=== PATIENT | male | born 1950 | race Caucasian/White ===

== ENCOUNTER → 2023-04-07 10:16 | Outpatient (REF) | payer OTHER, SELFPAY | LOC: HWRAD 10:16 | PROVIDERS: ATTENDING PHYSICIAN Internal Medicine Hematology & Oncology; FAMILY PHYSICIAN Family Medicine | DX: D75.1 Secondary polycythemia (principal); D72.828 Other elevated white blood cell count | CPT/HCPCS: 76705 ==

== ENCOUNTER 2023-04-13 06:25 | Day surgery (SDC) | payer OTHER, SELFPAY ==
[2023-04-13 08:11] VITALS: BP 143/91
[2023-04-13 08:20] VITALS: BMI 30.5
[2023-04-13 08:29] LABS: Glucose - Point of Care 132 mg/dl (70-99)
[2023-04-13 10:49] LABS: Glucose - Point of Care 101 mg/dl (70-99)
[2023-04-13 10:52] VITALS: BP 106/77
[2023-04-13 11:00] VITALS: BP 127/85
== END 2023-04-13 11:43 | disposition home or self-care (01) ==
LOC: SDS 06:25
PROVIDERS: ATTENDING PHYSICIAN Internal Medicine Gastroenterology
DX: D12.2 Benign neoplasm of ascending colon (principal); D12.5 Benign neoplasm of sigmoid colon; K57.30 Diverticulosis of large intestine without perforation or abscess without bleeding; K64.8 Other hemorrhoids; R19.5 Other fecal abnormalities; K29.70 Gastritis, unspecified, without bleeding; D13.2 Benign neoplasm of duodenum; K31.7 Polyp of stomach and duodenum; K31.A0 Gastric intestinal metaplasia, unspecified; K31.89 Other diseases of stomach and duodenum; Z79.01 Long term (current) use of anticoagulants
CPT/HCPCS: 45385; 45381; 43239; 88305; 82962; 88342

== ENCOUNTER 2023-05-28 08:44 | Emergency (ER) | payer OTHER, SELFPAY ==
[2023-05-28 08:48] VITALS: BP 157/79
--- NOTE | 2023-05-28 08:57 | EDRN ---
Dr. Llanes in room w/ pt at this time.
--- NOTE | 2023-05-28 09:11 | ED.GENMED ---
History of Present Illness
General
Chief Complaint: Back Pain
Source: patient
Exam Limitations: none
Time Seen by Provider: 05/28/23 08:51
Nursing documentation reviewed up to this point in time: agreed with
Travel History
Have you had any contact with someone who has COVID-19?: No
Do you have any symptoms of coronavirus? Fever > 100 degrees, chills, cough, shortness of breath, sore throat, loss of taste or smell, muscle aches, or headache?: No
History of Present Illness
History of Present Illness:
72-year-old male presents emergency department complaint of low back pain that began last night at 8 PM when he got out of a car. The pain radiates down his right leg. He denies any loss of bowel or bladder function. He denies any numbness.
Past History
Past History
ED Past Medical History: HTN, Hypercholesterolemia and IDDM
ED Past Surgical History: Orthopedic
Social History
Tobacco: Non-smoker
Living: with family
Review of Systems
Review of Systems
Allergies reviewed?: Yes
All Other Systems: Not applicable
Constitutional: Reports no symptoms
EENT: Reports no symptoms
Respiratory: Reports no symptoms
Cardiac: Reports no symptoms
ABD/GI: Reports no symptoms
: Reports no symptoms
Musculoskeletal: Reports back pain
Skin: Reports no symptoms
Neurological: Reports no symptoms
Endocrine: Reports no symptoms
Hematologic/Lymphatic: Reports no symptoms
Psychiatric: Reports no symptoms
Phy Exam
Physical Exam
Physical Exam:
Physical Exam
General: Appears uncomfortable, afebrile
Neck: supple. no meningeal signs. normal posterior pharynx
Heart: s1/s2 regular rate and rhythm, no murmur. equal radial
pulses.
HEENT: Pupils equal round reactive to light, EOMI
Lungs: no acute respiratory distress. clear bilaterally
Abdomen: normal bowel sounds. not tender. no CVAT
back: mild ttp at right SI joint, no stepoff
Neuro: alert and oriented. no focal neurological deficits cranial nerves II through XII intact
Skin: no rash
Psychiatric: well kept. interactive and cooperative
Extremities: no edema. no calf tenderness. negative homans. good distal pulses
Course
Orders/Labs/Results
Orders:
Orders
05/28/23 09:05
IV Insert/Care/Rem.- Treatment PRN
HYDROmorphone [Dilaudid] 0.5 mg IV NOW STA
Ondansetron Injectable [Zofran] 4 mg IV NOW STA
Lumbar Spine Complete, 4 View [CR Lumbar Spine Comp Min 4 Vw*] Urgent
Comment:
Reason For Exam: low back pain since last night, rad down left leg
05/28/23 13:22
HYDROmorphone [Dilaudid] 0.5 mg IV NOW STA
05/28/23 13:23
Dexamethasone Sod Phosphate [Decadron] 10 mg IV NOW STA
Vital Signs
Initial and Last Documented VS:
Initial Vital Signs
Temp Pulse Resp BP Pulse Ox
97.6 F 80 16 157/79 94
05/28/23 08:48 05/28/23 08:48 05/28/23 08:48 05/28/23 08:48 05/28/23 08:48
Last Documented Vital Signs
Temp Pulse Resp BP Pulse Ox
97.6 F 72 16 114/62 94
05/28/23 08:48 05/28/23 14:00 05/28/23 14:00 05/28/23 13:00 05/28/23 14:00
MDM/Problems Addressed
Differential Diagnosis Includes:
Cauda equina, sciatica
MDM/Problems Addressed:
72-year-old male with low back pain, no signs of cauda equina. Ambulates with some pain. Patient will follow-up with pain management.
Chronic conditions affecting care: HTN
Acute Exacerbation and/or Progression of Chronic Illness: HTN
*Radiology
Radiology exam reviewed: radiology read reviewed (Lumbar spine x-ray shows hypertrophic degenerative changes of lumbar spine)
*Pulse Oximetry
Patient hypoxic: no
*EKG
Interpreted by ED Provider?: NA
*Mangle Catcher Interpretation
Rate: Mangle Catcher- N/A
*Critical Care Note
Total Time (30-74mins, 75-104mins- exclusive of procedures): Not Applicable
Patient Management
Social determinants of health affecting care: Living situation
Escalation/DeEscalation of care consider admission/obs:
Admit not indicated
ED Attending Note
-
Portions of this chart may have been created with voice recognition software.� Occasional wrong word or��sound alike� substitutions may have occurred due to the inherent limitations of voice recognition software.
Discharge Plan
Departure
Patient Disposition: Home (Routine Discharge)
Date of Disposition: 05/28/23
Time of Disposition: 14:49
Patient with high blood pressure during this ER visit?: Yes
Condition: Good
Discharge Problem:
Low back pain
Instructions: Low Back Pain (DC), BLOOD PRESSURE
Prescriptions:
New
hydrocodone-acetaminophen 5-300 mg tablet
1 tab PO Q4H PRN (Reason: Pain) Qty: 14 0RF
prednisone 50 mg tablet
50 mg PO DAILY Qty: 4 0RF
No Action
atorvastatin 40 MG tablet
40 mg PO QPM
loperamide 2 MG capsule
2 mg PO PRN PRN (Reason: loose stools)
tamsulosin [Flomax] 0.4 MG capsule
0.4 mg PO HS
lisinopril 10 MG tablet
5 mg PO QPM
Novolin R Regular U100 Insulin 100 UNITS/ML solution
20 units SC AC
naproxen 500 MG tablet
1 - 2 tab PO PRN PRN (Reason: pain)
Levemir FlexTouch U100 Insulin 300 UNIT/3 ML insulin pen
80 units SC HS
Xarelto 20 mg Tablet
20 mg PO DAILY
atorvastatin 40 mg Tablet
40 mg PO DAILY
miconazole nitrate 2 % Cream
1 applic TOPICAL DAILY
tramadol 50 mg Tablet
50 mg PO DAILY
pantoprazole 40 mg Tablet,Delayed Release (Dr/Ec)
40 mg PO DAILY
cholecalciferol (vitamin D3) 10 mcg (400 unit) Tablet
10 mcg PO DAILY
Jardiance 25 mg Tablet
25 mg PO DAILY
Ozempic 2 mg/dose (8 mg/3 mL) Pen Injector
2 mg SC QWEEK
carboxymethylcellulose drops
1 BOTH EYES DAILY
Referrals:
Rory Wadsworth MD [Family Provider] - Call in 1-3 days for appt
Interventions
Interventions:
*Risk Screen - Suicide Last Done: 05/28/23 08:46
*General Assessment Last Done: 05/28/23 08:46
*Neglect/Abuse Screening Last Done: 05/28/23 08:46
ED- Fall Risk Assessment Last Done: 05/28/23 09:15
*ED COVID-19 Vaccine History Last Done: 05/28/23 09:15
ED-Musculoskeletal Assessment Last Done: 05/28/23 09:20
Discharge Date and Time
Print Language: SUDANESE
[2023-05-28 09:14] VITALS: BMI 31.5
[2023-05-28] MEDS: DILAUDID 0.5 MG IV ×2 (09:20→13:37)
[2023-05-28] MEDS: ZOFRAN 4 MG IV (09:22)
[2023-05-28 10:16] VITALS: BP 119/62
[2023-05-28 12:30] VITALS: BP 131/63
[2023-05-28 13:00] VITALS: BP 114/62
--- NOTE | 2023-05-28 13:17 | EDRN ---
Dr. Llanes in room w/ pt at this time.
[2023-05-28] MEDS: DECADRON 10 MG IV (13:38)
[2023-05-28 15:16] VITALS: BP 145/94
== END 2023-05-28 15:16 | disposition home or self-care (01) ==
LOC: EMR 08:44
PROVIDERS: EMERGENCY PHYSICIAN Emergency Medicine; FAMILY PHYSICIAN Pain Medicine Interventional Pain Medicine
DX: M54.50 Low back pain, unspecified (principal); I10 Essential (primary) hypertension
CPT/HCPCS: 99284; 96374; 96375 ×2; 96376; 72110

== ENCOUNTER → 2023-06-30 06:54 | Outpatient (REF) | payer OTHER, SELFPAY | LOC: PAVMRI 06:54 | PROVIDERS: ATTENDING PHYSICIAN Orthopaedic Surgery; FAMILY PHYSICIAN Family Medicine | DX: M54.50 Low back pain, unspecified (principal) | CPT/HCPCS: 72148 ==

== ENCOUNTER → 2023-07-24 14:32 | Outpatient (REF) | payer OTHER, SELFPAY | LOC: RCS 14:32 | PROVIDERS: ATTENDING PHYSICIAN Internal Medicine Cardiovascular Disease; FAMILY PHYSICIAN Family Medicine | DX: I35.0 Nonrheumatic aortic (valve) stenosis (principal) | CPT/HCPCS: 93306 ==

== ENCOUNTER 2023-08-12 06:11 | Day surgery (SDC) | payer OTHER, SELFPAY ==
[2023-08-12 07:09] LABS: Glucose - Point of Care 113 mg/dl (70-99)
[2023-08-12 07:23] VITALS: BMI 31.1
[2023-08-12 07:26] VITALS: BP 146/75
[2023-08-12 08:57] VITALS: BP 119/72
[2023-08-12 09:00] VITALS: BP 125/74
[2023-08-12 09:15] VITALS: BP 141/74
== END 2023-08-12 09:35 | disposition home or self-care (01) ==
LOC: SDS 06:11
PROVIDERS: ATTENDING PHYSICIAN Internal Medicine Gastroenterology
DX: D12.3 Benign neoplasm of transverse colon (principal); D12.4 Benign neoplasm of descending colon; K57.30 Diverticulosis of large intestine without perforation or abscess without bleeding; K22.89 Other specified disease of esophagus; D13.2 Benign neoplasm of duodenum; Z86.010 Personal history of colon polyps; Z98.890 Other specified postprocedural states
CPT/HCPCS: 43251; 45385; 45380; 88305; 82962

== ENCOUNTER → 2023-08-21 10:45 | Outpatient (REF) | payer OTHER, SELFPAY | LOC: HWRAD 10:45 | PROVIDERS: ATTENDING PHYSICIAN Internal Medicine Cardiovascular Disease; FAMILY PHYSICIAN Family Medicine | DX: R09.89 Other specified symptoms and signs involving the circulatory and respiratory systems (principal); I35.0 Nonrheumatic aortic (valve) stenosis | CPT/HCPCS: 93880 ==

== ENCOUNTER → 2023-10-30 13:45 | Outpatient (REF) | payer OTHER, SELFPAY | LOC: MRI 3T 13:45 | PROVIDERS: ATTENDING PHYSICIAN Pain Medicine Interventional Pain Medicine; FAMILY PHYSICIAN Family Medicine | DX: M54.12 Radiculopathy, cervical region (principal) | CPT/HCPCS: 72141 ==

== ENCOUNTER → 2024-01-06 09:57 | Outpatient (REF) | payer OTHER, SELFPAY | LOC: RCS 09:57 | PROVIDERS: ATTENDING PHYSICIAN Internal Medicine Cardiovascular Disease; FAMILY PHYSICIAN Family Medicine | DX: I10 Essential (primary) hypertension (principal); I35.0 Nonrheumatic aortic (valve) stenosis | CPT/HCPCS: 93306 ==

== ENCOUNTER 2024-01-15 11:18 | Day surgery (SDC) | payer OTHER, SELFPAY ==
--- NOTE | 2024-01-15 13:13 | ITS.CL.IMPLP ---
Crm Administrator - Implant Loop
Implant Loop
Procedure Report:
Primary Physician: Blade Pierson MD
Primary Feather Edger: Nikky Merrill DO
Procedure Date: 01/15/2024
Procedure: Placement of a loop recorder.
History/Indication:
1. See office H&P for complete history.
2. Patient is a pleasant 73-year-old male with a past medical history significant for hypertension, aortic stenosis, diabetes mellitus type 2, IPF, dyslipidemia, sleep apnea, history of tobacco use, chronic pain, paroxysmal atrial fibrillation
patient undergo ILR implant due to longitudinal surveillance regarding atrial fibrillation. Following shared discussion by patient and primary licensed appraiser, patient to remain off anticoagulation unless documented by loop recorder is followed by
primary licensed appraiser.
Method:
After informed consent was obtained, the patient was brought to the EP laboratory holding area in a fasting, non-sedated state. Peripheral access was established. The left chest was prepared and draped in a sterile fashion. A 'time out' was
called. Local anesthesia was injected in the subcutaneous tissue. The ILR was injected under the skin. Topical skin adhesive was applied. Following the procedure, the patient was taken to the recovery area in stable condition. No complications
were noted.
Device Data:
Medtronic; Model# LINQII; Serial# [id number]
Conclusion:
Successful placement of a loop recorder.
Recommendations:
1. Follow-up will be arranged in the [facility] in 7-10 days for wound check.
2. Routine ILR care.
Thor Nguyen DO
Clinical Cardiac Tumbling Instructor
cc: Blade Pierson MD; Nikky Merrill DO
== END 2024-01-15 13:15 | disposition home or self-care (01) ==
LOC: CATH 11:18
PROVIDERS: ATTENDING PHYSICIAN Internal Medicine Cardiovascular Disease; FAMILY PHYSICIAN Family Medicine; OTHER PHYSICIAN Internal Medicine Cardiovascular Disease
DX: Z09 Encounter for follow-up examination after completed treatment for conditions other than malignant neoplasm (principal); I48.0 Paroxysmal atrial fibrillation; I10 Essential (primary) hypertension; I35.0 Nonrheumatic aortic (valve) stenosis; E11.9 Type 2 diabetes mellitus without complications; J84.112 Idiopathic pulmonary fibrosis; E78.5 Hyperlipidemia, unspecified; G47.33 Obstructive sleep apnea (adult) (pediatric); Z87.891 Personal history of nicotine dependence; Z79.01 Long term (current) use of anticoagulants; Z79.84 Long term (current) use of oral hypoglycemic drugs; Z79.85 Long-term (current) use of injectable non-insulin antidiabetic drugs
CPT/HCPCS: 33285; C1764

== ENCOUNTER → 2024-05-14 09:37 | Outpatient (REF) | payer OTHER, SELFPAY ==
[2024-05-15 23:48] LABS: IgM 111 mg/dl (40-230)
[2024-05-17 04:08] LABS: IgG Subclass 1 701 mg/dL (240-1118); IgG Subclass 2 421 mg/dL (124-549); IgG Subclass 3 40 mg/dL (21-134); IgG Subclass 4 20 mg/dL (1-123)
[2024-05-17 07:34] LABS: IgE 22 kU/L (<=214)
== END ==
LOC: REG 09:37
PROVIDERS: ATTENDING PHYSICIAN Internal Medicine Critical Care Medicine; FAMILY PHYSICIAN Family Medicine
DX: J47.9 Bronchiectasis, uncomplicated (principal)
CPT/HCPCS: 36415; 82784; 82785; 82787; 87205

== ENCOUNTER → 2024-05-19 14:08 | Outpatient (REF) | payer OTHER, SELFPAY | LOC: HWRAD 14:08 | PROVIDERS: ATTENDING PHYSICIAN Internal Medicine Critical Care Medicine; FAMILY PHYSICIAN Family Medicine | DX: J32.9 Chronic sinusitis, unspecified (principal); J47.9 Bronchiectasis, uncomplicated | CPT/HCPCS: 70486; 71250 ==

== ENCOUNTER → 2024-10-10 12:05 | Outpatient (REF) | payer OTHER, SELFPAY ==
[2024-10-10 13:19] LABS: ALT (SGPT) 19 U/L (0-50); AST (SGOT) 23 U/L (17-59); Albumin 4.3 g/dl (3.5-5.0); Alkaline Phosphatase 75 U/L (38-126); Blood Urea Nitrogen 11 mg/dl (9-20); Calcium 8.9 mg/dl (8.4-10.2); Carbon Dioxide 26 mmol/L (22-30); Chloride 104 mmol/L (98-107); Glucose 146 mg/dl (70-99); Potassium 4.4 mmol/L (3.5-5.1); Sodium 137 mmol/L (135-145); Total Protein 7.4 g/dl (6.3-8.2); eGFR > 60.00
[2024-10-10 13:51] LABS: Hematocrit 53.4 % (39.0-52.0); Hemoglobin 17.5 g/dL (13.0-18.0); Mean Corp Hgb Conc. 32.8 g/dL (33.0-37.0); Mean Corpuscular Volume 84.5 fL (80.0-94.0); Nucleated Red Blood Cells % 0 % (-); Platelet Count 226 10^3/uL (130-400); Red Cell Dist. Width 16.1 % (11.5-14.5)
== END ==
LOC: REG 12:05
PROVIDERS: ATTENDING PHYSICIAN Internal Medicine Interventional Cardiology; FAMILY PHYSICIAN Family Medicine
DX: I35.0 Nonrheumatic aortic (valve) stenosis (principal); E11.9 Type 2 diabetes mellitus without complications; E78.00 Pure hypercholesterolemia, unspecified
CPT/HCPCS: 36415; 80053; 85025

== ENCOUNTER 2024-10-13 07:03 | Day surgery (SDC) | payer OTHER, SELFPAY ==
[2024-10-13] VITALS (7 sets, daily range): BP systolic 114–125; BP diastolic 67–76; BMI 31.1
[2024-10-13 08:05] LABS: Glucose - Point of Care 101 mg/dl (70-99)
[2024-10-13] MEDS: LOW STRENGTH ASPIRIN 324 MG PO (08:18)
[2024-10-13] MEDS: NSS 287 ML IV (08:18)
--- NOTE | 2024-10-13 08:29 | ITS.CL.CATH ---
Head End Desizing Machine Operator - Catheterization
Cardiac Catheterization
Procedure Report:
LEFT AND RIGHT HEART CATHETERIZATION
Date of Procedure: October 14, 2019
Referring: Dary Gr.
PROCEDURES:
1. Left heart catheterization, coronary angiogram.
2. Moderate sedation.
3. Right heart catheterization
INDICATION: Ishmael is a 73-year-old gentleman with HTN, HLD, DM2, KRISTEN, GERD, osteoarthritis, pAF on xarelto, idiopathic pulmonary fibrosis due to Agent Piercy exposure, at least moderate stenosis (Echo 01/23: 50/28 mmHg), tobacco abuse (quit 1984),
recurrent nose bleeds who presents today�for left and right heart catheterization.
ACCESS: 1. Right radial artery, 6Fr. sheath, under US guidance.
HEMODYNAMICS : (mmHg)
RA (m) : 8
RV (s/d,m) : 43/5, 12
PA (s/d, m) : 39/16, 26
PCWP: 20
PA saturation: 69.6% on room air
AO saturation: 93.9% on room air
RA saturation: 72.3% on room air
Cardiac Output : 4.23 L/min by Claude calculation
Cardiac Index : 2.01 L/min/m-2 by Claude calculation
Systemic vascular resistance: 1644 dsc^(-5)
Pulmonary vascular resistance: 1.42 juan unit
Heart Rate: 63bpm
AO (s/d) : 121/63
LVEDP : 21
Invasive mean aortic gradient of 37mmHg, JANAY 0.84cm
CORONARY FINDINGS
Dominance: Right
Left Main Trunk (LMT): Large caliber vessel that gives rise to the LAD and LCx branches and is free of angiographic disease.
Left Anterior Descending Artery (LAD): Medium caliber vessel that gives off 3 major diagonal branches as it courses along the anterior inter-ventricular groove before wrapping around the cardiac apex. Minimial luminal irregularities.
Left Circumflex Artery (LCx): Small to medium caliber vessel that gives off 2 small to medium caliber major obtuse marginal (OM) branches as it courses along the atrio-ventricular (AV) groove. There is an ectatic area in the ostial to proximal
portion of the left circumflex artery. There is a 70 to 80% stenosis in the distal portion of left circumflex just proximal to the left posterolateral branch which is small in caliber.
Right Coronary Artery (RCA): Large caliber dominant vessel that gives rise to the posterior descending artery (RPDA) and postero-lateral ventricular (RPLV) branches distally. The RCA and its branches are free of angiographic disease.
SEDATION: 47 minutes of procedural sedation was utilized. IV Midazolam and IV Fentanyl were administered. An independent medical physics professor was present to assist with and help manage the patient's level of consciousness and physiologic status.
RADIATION SUMMARY: Fluoro Time (min): 3.8, Dose (mGy): 280.24, DAP (Gy.cm2) : 18.4
Closure Device: There were no immediate intra-procedural complications. The sheath was pulled in the laboratory immunologist and a vascular-band applied to the right wrist for radial artery hemostasis using the patent hemostasis technique.
CONCLUSIONS
1. No obstructive coronary artery disease.
2. Severe symptomatic aortic stenosis (mean aortic gradient of 37mmHg, JANAY 0.84cm).
RECOMMENDATIONS
1. Wean radial band per protocol. Monitor right hand perfusion and for bleeding from the radial site following removal of the vascular-band following trans-radial access.
2. Continue aggressive medical therapy and risk factor modification for secondary CAD prevention.
3. Plan to proceed with workup for transcatheter aortic valve replacement with TAVR protocol CT of chest, abdomen and pelvis as well as CT surgery consult prior to discussion at weekly structural heart meeting.
Analia Vega MD, FAC, [facility]
Copy to: Dary Gr.
--- NOTE | 2024-10-13 12:09 | CONSULT.STRU ---
Consultation
-
Date/Time Consultation Requested: 10/13/2024
Date/Time Consultation Performed: 10/13/2024
Requesting Provider: Analia Vega MD
Performing Provider: NICK Borja
Reason for Consultation: / TAVR
Patient History
Physicians
Family Physician: Blore
Outpatient Pottery Decorator: Delvisiring
Primary Pottery Decorator: Scheiring
History of Present Illness
Mr. Harper is a very pleasant 73 yom that has a past medical history significant for aortic stenosis, DM, PAF, HTN, IPF, dyslipidemia, KRISTEN, and a former smoker. His echocardiogram from 01/06/2024 is notable for an EF 51%, AV P/M 50/28, JANAY 1.2, mild
AI, MAC, Trace MR, trace TR, PAP 21. From a symptomatology standpoint, patient describes FORRESTER. Discussed the pathophysiology and treatment options of aortic stenosis including SAVR and TAVR, Explained the evaluation process comprising of lab work, CT
scan, CT surgical consult, dental clearance, and a heart team discussion. TAVR booklet, contact information, prescriptions, and appointments given to patient. Allowed for and answered questions at bedside.
Past Medical History
Past Medical History: Atrial Fib, FORRESTER, GERD, HTN, NIDDM, KRISTEN, Valvular Disease (aortic stenosis) and Other (IPF, dyslipidemia, former smoker, osteoarthritis, gynecomastia, goiut)
Past Surgical History
Past Surgical History: Other (LASIK surgery 10/11/2007rthroscopic menisectomy left knee(1997) 10/11/2007right shoulder- August 2015 03/07/2016Left Total Knee 06/2010Left Knee Revision 01/2011Left lateral epicondyle debridement and repair (DOS
12/14/2018) 12/17/2018Nose surgery 01/2019Carpal Tunnel - Lt Hand 12/23/19Rig S1 Joint)
Dental History
[facility]
Family History
Mother: N/A
Father: N/A
Social History
Alcohol: Occasional
Drug: None
Tobacco: Former Smoker
Personal:
Living: With Spouse
Employment: Retired
Allergies
Allergy/AdvReac Type Severity Reaction Status Date / Time
metformin Allergy upset Verified 10/13/24 07:32
stomach
morphine Allergy severe Verified 10/13/24 07:32
itching
oxycodone HCl (From Allergy severe Verified 10/13/24 07:32
OxyContin) nausea
sick to
stomach
poison maggy extract Allergy RASH/BLISTE Verified 10/13/24 07:32
RS
poison oak extract Allergy RASH/BLISTE Verified 10/13/24 07:32
RS
warfarin Allergy feel sick Verified 10/13/24 07:32
Home Medications
�Medication �Instructions �Recorded �Confirmed �Type
atorvastatin 40 mg tablet 40 mg PO QPM 02/14/19 10/13/24 History
lisinopril 10 mg tablet 5 mg PO QPM 02/14/19 10/13/24 History
naproxen 500 mg tablet 1 - 2 tab PO PRN PRN pain 02/14/19 10/13/24 History
tamsulosin 0.4 mg capsule (Flomax) 0.4 mg PO DAILY 02/14/19 10/13/24 History
empagliflozin 25 mg tablet 12.5 mg PO DAILY 04/13/23 10/13/24 History
(Jardiance)
miconazole nitrate 2 % topical 1 applic topical DAILY 04/13/23 10/13/24 History
cream
pantoprazole 40 mg tablet,delayed 40 mg PO DAILY 04/13/23 10/13/24 History
release
rivaroxaban 20 mg tablet (Xarelto) 20 mg PO QPM 04/13/23 10/13/24 History
semaglutide 2 mg/dose (8 mg/3 mL) 2 mg SC MO 04/13/23 10/13/24 History
subcutaneous pen injector (Ozempic)
tramadol 50 mg tablet 50 mg PO DAILY 04/13/23 10/13/24 History
cyclosporine 0.05 % eye drops in a 1 drp ophthalmic (eye) Q12H 08/12/23 10/13/24 History
dropperette (Restasis)
tolterodine 4 mg capsule,extended 4 mg PO DAILY 01/15/24 10/13/24 History
release 24 hr
vitamin B12 0.5 mg-folic acid 1 mg 1 tab PO QPM 01/15/24 10/13/24 History
tablet
albuterol sulfate 1 vial inhalation R DAILY 10/13/24 10/13/24 History
budesonide 1 ml inhalation R DAILY 10/13/24 10/13/24 History
furosemide 20 mg tablet (Lasix) 20 mg PO DAILY #90 tabs 10/13/24 Rx
sodium chloride 0.9 % for 1 ml inhalation R DAILY 10/13/24 10/13/24 History
nebulization
STS%
STS %: 1.39
Review of Systems
-
History Source: Patient
General: Reports Fatigue
HEENT: Reports No Symptoms
Respiratory: Reports SOB and FORRESTER
Cardiac: Reports No Symptoms
Abdomen/GI: Reports No Symptoms
: Reports No Symptoms
Musculoskeletal: Reports Joint Pain
Skin: Reports No Symptoms
Physical Exam
Vital Signs
Temp 98.2 F 10/13/24 08:12
Temp route: Oral 10/13/24 08:12
Pulse 59 10/13/24 10:00
Resp Rate 13 10/13/24 10:00
Blood pressure 114/71 10/13/24 07:47
Blood pressure extremity used: Left upper arm 10/13/24 08:12
Position: Lying 10/13/24 08:12
MAP (cuff-Kemi Monitor) 83 10/13/24 07:47
SaO2 94 10/13/24 10:00
Oxygen Mode of Delivery Room air 10/13/24 08:12
Can the patient verbally communicate their pain? Yes 10/13/24 08:12
Pain scale ratin 10/13/24 08:12
Actual Weight 95.6 kg 10/13/24 07:27
Body Mass Index (BMI) 31.1 10/13/24 07:27
Labs
10/10/2024
HH: 17.5/53.4
Plt: 226K
BUN/Creat: 110.8
GFR>60
Diagnostic Studies
Procedure Type:�Isolated AVR
Perioperative Outcome Estimate %
Operative Mortality 1.39%
Morbidity & Mortality 9.9%
Stroke 0.673%
Renal Failure 1.42%
Reoperation 3.94%
Prolonged Ventilation 4.72%
Deep Sternal Wound Infection 0.087%
Long Hospital Stay (>14 days) 3.4%
Short Hospital Stay (<6 days)* 45.2%
ECHOCARDIOGRAM 01/06/2024:
CONCLUSIONS
Normal left ventricular size and systolic function. No regional wall motion
abnormalities are seen. LV ejection fraction is 51% by Dawkins's biplane method
of discs. Mild concentric left ventricular hypertrophy. Normal diastolic
function.
Thickened mitral valve leaflets. Mitral valve opens normally. Mitral annular
calcification. Trace mitral regurgitation is seen.
Calcified trileaflet aortic valve with restricted leaflet motion. Moderate
aortic stenosis. Peak/mean gradients across the aortic valve are 50/28 mmHg
respectively. Using an LVOT diameter of 2.2 cm the aortic valve by the
Continuity equation is calculated at 1.2 cm2. Mild aortic regurgitation.
Since echocardiogram July 2023, there is no significant change.
CHEST CT 05/19/2024
IMPRESSION:
1. Moderate changes of pulmonary fibrosis, nonspecific pattern. No clear progression identified.
2. No superimposed acute pulmonary process identified.
3. Coronary and aortic atherosclerosis. Moderate to severe aortic valve calcification.
4. Chronic sternal fracture, nearly completely healed.
Exam
General: Well Developed, Well Nourished and No Apparent Distress
HEENT: Normocephalic
Neck: Trachea Midline
Respiratory: Clear (anteriorly)
Cardiac: Murmur (III/ BABAR)
GI: Soft, Non Tender and Non Distended
Rectal: Deferred by Provider
Skin: Warm and Dry
Neuro: Awake, Alert, Oriented and AO x 3
Psych: Calm
Assessment / Plan
-
Aortic stenosis
Continue TAVR evaluation
Trend creatinine
TAVR CT scan
CT surgical consult
Frailty testing and KCCQ12 at consult
Will hold Xarelto for TAVR
Dental clearance
Heart team discussion
Data Reviewed
-
Dry Cure Worker: Report Reviewed by me and Discussed with Physician
Echo: Report Reviewed by me and Discussed with Physician
Labs: Labs Reviewed by me
Old Records: Reviewed
Total Time Spent with Patient (in minutes): 45
[2024-10-13 12:26] LABS: Glucose - Point of Care 89 mg/dl (70-99)
[2024-10-13] MEDS: LASIX 20 MG IV (12:26)
== END 2024-10-13 15:00 | disposition home or self-care (01) ==
LOC: CATH 07:03
PROVIDERS: ATTENDING PHYSICIAN Internal Medicine Interventional Cardiology; FAMILY PHYSICIAN Family Medicine; OTHER PHYSICIAN Internal Medicine Cardiovascular Disease
DX: I35.0 Nonrheumatic aortic (valve) stenosis (principal); I25.10 Atherosclerotic heart disease of native coronary artery without angina pectoris; G47.33 Obstructive sleep apnea (adult) (pediatric); E78.5 Hyperlipidemia, unspecified; E11.9 Type 2 diabetes mellitus without complications; I48.0 Paroxysmal atrial fibrillation; Z87.891 Personal history of nicotine dependence; I08.0 Rheumatic disorders of both mitral and aortic valves; I11.9 Hypertensive heart disease without heart failure; R06.09 Other forms of dyspnea; I48.91 Unspecified atrial fibrillation; K21.9 Gastro-esophageal reflux disease without esophagitis; Z79.01 Long term (current) use of anticoagulants; Z79.84 Long term (current) use of oral hypoglycemic drugs; Z79.899 Other long term (current) drug therapy; M19.90 Unspecified osteoarthritis, unspecified site; J84.112 Idiopathic pulmonary fibrosis; I70.0 Atherosclerosis of aorta; Z88.8 Allergy status to other drugs, medicaments and biological substances; Z88.5 Allergy status to narcotic agent
CPT/HCPCS: 99152; 99153; 82962; 93460; C1894; Q9967

== ENCOUNTER → 2024-10-20 08:28 | Outpatient (REF) | payer OTHER, SELFPAY ==
[2024-10-20 11:18] LABS: Blood Urea Nitrogen 12 mg/dl (9-20); Calcium 9.3 mg/dl (8.4-10.2); Carbon Dioxide 29 mmol/L (22-30); Chloride 102 mmol/L (98-107); Glucose 125 mg/dl (70-99); Magnesium 1.9 mg/dl (1.6-2.3); Potassium 3.9 mmol/L (3.5-5.1); Sodium 138 mmol/L (135-145); eGFR > 60.00
== END ==
LOC: REG 08:28
PROVIDERS: ATTENDING PHYSICIAN Nurse Practitioner Acute Care; FAMILY PHYSICIAN Family Medicine; REFERRING PHYSICIAN Internal Medicine Cardiovascular Disease
DX: I35.0 Nonrheumatic aortic (valve) stenosis (principal); I48.0 Paroxysmal atrial fibrillation
CPT/HCPCS: 36415; 80048; 83735

== ENCOUNTER → 2024-10-27 08:55 | Outpatient (REF) | payer OTHER, SELFPAY | LOC: RAD 08:55 | PROVIDERS: ATTENDING PHYSICIAN Internal Medicine Cardiovascular Disease; FAMILY PHYSICIAN Family Medicine | DX: I10 Essential (primary) hypertension (principal); I35.0 Nonrheumatic aortic (valve) stenosis | CPT/HCPCS: 74174; 75572; 93306; Q9967 ==

== ENCOUNTER 2024-12-29 04:52 | Inpatient (IN) | payer OTHER, SELFPAY ==
[2024-12-20 10:37] LABS: Urine Character Clear (Clear)
--- NOTE | 2024-12-20 10:45 | CM ---
Chart reviewed. Met with the patient and in PAT. Reviewed preoperative and postoperative instructions and restrictions, along with showering guidelines. Gave patient 2 soaps. Patient is agreeable to a home visit by CT Transitional RN.
Patient is independent of ADLS, lives with his in a 1 ST, ramp access, patient has a wheelchair for long distances due to his knees. Plan is for the patient to return home with CT Transitional RN. CM to follow
[2024-12-20 10:47] LABS: Hematocrit 52.9 % (39.0-52.0); Hemoglobin 17.2 g/dL (13.0-18.0); INR 1.96; Mean Corp Hgb Conc. 32.5 g/dL (33.0-37.0); Mean Corpuscular Volume 85.7 fL (80.0-94.0); Nucleated Red Blood Cells % 0 % (-); PT 22.5 Sec (11.4-14.6); Platelet Count 203 10^3/uL (130-400); Red Cell Dist. Width 14.6 % (11.5-14.5)
[2024-12-20 11:06] LABS: Urine Red Blood Cell 0-2 /HPF (0-2); Urine Squamous Cell 21-25 /LPF (Few); Urine White Cell 0-2 /HPF (0-5)
[2024-12-20 11:17] LABS: ALT (SGPT) 19 U/L (0-50); AST (SGOT) 25 U/L (17-59); Albumin 4.4 g/dl (3.5-5.0); Alkaline Phosphatase 78 U/L (38-126); Blood Urea Nitrogen 11 mg/dl (9-20); Calcium 9.2 mg/dl (8.4-10.2); Carbon Dioxide 28 mmol/L (22-30); Chloride 103 mmol/L (98-107); Glucose 113 mg/dl (70-99); Potassium 4.2 mmol/L (3.5-5.1); Sodium 139 mmol/L (135-145); Total Protein 7.6 g/dl (6.3-8.2); eGFR > 60.00
[2024-12-20 11:19] LABS: Glycohemoglobin (HgbA1c) 6.5 % (4.0-5.6)
[2024-12-20 13:30] VITALS: BMI 30.3
[2024-12-29] VITALS (28 sets, daily range): BP systolic 100–150; BP diastolic 57–97; BMI 29.9
[2024-12-29 05:17] LABS: Glucose - Point of Care 118 mg/dl (70-99)
[2024-12-29 05:38] LABS: INR 1.01; PT 13.8 Sec (11.4-14.6)
--- NOTE | 2024-12-29 06:02 | PTCARENOTE ---
Patient admitted as first TAVR case. Admission questions completed. LFA20G PIV inserted. Surgical sites clipped. CHG bath completed. Right and left BPs obtained. Sinus rhythm on telemetry. Oxygen saturation 94-95% on room air. Accucheck completed as
the patient is a type 2 diabetic, glucose 118. Ordered labs drawn and sent. The patient denies pain at this time but does get injections in his neck for degenerative disc disease.
The patient is AOx3. Mildly MIAMI but does not use hearing aids. Pupils 3mm equal and reactive. Equal futures trader strength bilateral upper and lower extremities. Speech clear. Sinus rhythm. Murmur noted. Bilateral pedal pulses +2 to palpation. No edema.
Lungs CTA bilaterally. Voided in the bathroom, reports urinary urgency and frequency at baseline. Ambulates independently in the room but uses a wheelchair for long distances. Skin is intact.
The patient endorses NPO status since midnight. Reports taking 81mg of Aspirin this morning. The patient also reported taking several of his home medications this AM, see med rec list, discussed with CT surgery ROSY Rosas who said the patient was
okay taking these medications prior to arrival. Last dose of Xarelto was 12/19 according to the patient. Call lira within reach. Care ongoing.
[2024-12-29 08:33] LABS: ACT-LR - POC 321 Seconds (116-155)
--- NOTE | 2024-12-29 08:45 | W.CVOR.SURPR ---
CVOR Surgeon Immed Pre Op
-
I have examined this patient prior to performance of the scheduled procedure.
The patient's condition is unchanged from the time of the dictated/written History and
Physical and the patient is able to undergo the scheduled procedure.
--- NOTE | 2024-12-29 08:45 | W.IMMPOSTOP ---
Surgical Immed Post Op Note
-
[id number]
STRUCTURAL HEART PROCEDURE NOTE: TAVR
Preoperative Dx:
Severe aortic stenosis with peak/mean valve gradients of 58.4/34 mmHg respectively with calculated JANAY of 1.13 with mild associated aortic insufficiency. At catheterization, valve gradients were higher at 37 mmHg with a calculated JANAY of 0.84
Sinus bradycardia rhythm with blocked PACs at 60 bpm preoperatively
Postoperative Dx:
Same
Acute on chronic combined systolic/diastolic CHF with elevated LVEDP (26 mmHg)
New bundle branch block, temporary pacing wire secured in-situ
Procedures:
1. Left common femoral vein access with ultrasound and fluoroscopic guidance, micropuncture technique, long 6 Marshallese sheath placement
2. Left common femoral arterial access with tactile, ultrasound, and fluoroscopic guidance, micropuncture technique, limited angiography, long 6 Marshallese sheath placement
3. Right common femoral arterial access with tactile, ultrasound, and fluoroscopic guidance, micropuncture technique, limited angiography, 8 Marshallese dilator placement
4. Placement of Perclose sutures x 2 to right common femoral artery with subsequent placement of 8 Marshallese sheath
5. Placement of temporary RV pacing wire under fluoroscopic guidance, threshold testing
6. Placement of pigtail catheter into right coronary cusp of aortic valve with limited aortography and confirmation of coplanar valve deployment views
7. Placement of J-wire/AL-1 catheter through right common femoral arterial 8 Marshallese sheath. Aortic valve was crossed with a wire during this maneuver.
8. AL-1 catheter advanced into LV, LVEDP assessment performed (26 mmHg); systemic heparin administered
9. Wire exchanged for extra-stiff
10. Serial dilation of right iliofemoral system with subsequent placement of Pratt E-sheath
11. Visual inspection of TAVR valve
12. Right transfemoral TAVR with placement of 26 mm CHRISTINE 3 Resilia valve
13. Completion aortography
14. Completion TTE assessment (mean gradient 7 mmHg, trace PVL)
15. Removal of valve delivery system and subsequent removal of Pratt E sheath with right IT NETWORK ADMINISTRATOR management with Perclose sutures x 2, manual pressure
16. Completion right iliofemoral angiography, protamine administration
17. Temporary pacing wire secured in situ given new bundle branch block
18. Removal of pigtail catheter and left IT NETWORK ADMINISTRATOR 6 Marshallese sheath with management with 6 Marshallese Angio-Seal; manual pressure
Key Worker:
Dr. Analia Vega
Cardiac Surgeon:
Dr. Jono Crawford
Anesthesia:
MAC and local to bilateral groins
Implants:
Pratt [employer]esciences, 26 mm CHRISTINE 3 valve, serial #[id number]
Perclose sutures x 2 to right IT NETWORK ADMINISTRATOR
6 Marshallese Angio-Seal x 1 to left IT NETWORK ADMINISTRATOR
Temporary pacemaking wire secured in situ
Cath Data:
Start: 0752 hrs., Deploy: 0825 hrs., End: 0840 hrs.
FT: 6.3min, mGy: 193, DAP: 23.8, Contrast: 59mL
Post-TTE: mean gradient 7mmHg, trace PVL
Complications:
No significant complications
New bradycardic BBB, temporary pacing wire secured in-situ
Condition:
Stable/guarded to recovery
[2024-12-29] MEDS: NSS 500 IV (09:10)
--- NOTE | 2024-12-29 09:33 | ITS.CL.TAVR ---
Jigsaw Operator - TAVR Report
TAVR PRocedure
Procedure Report:
TRANSCATHETER AORTIC VALVE REPLACEMENT
Date of Procedure: December 29, 2024
Referring: Dary Gr.
Operators: Drs. Analia Vega and Jono Crawford
PROCEDURE PERFORMED:
1. Successful placement of 26 mm Pratt Mao S3 aortic valve via right common femoral approach.
2. Ultrasound-guided access.
3. Bilateral femoral angiography.
ACCESS:
1. Right common femoral artery, 8 Ukrainian sheath, under ultrasound guidance using a micropuncture kit.
2. Left common femoral vein, 6 Ukrainian sheath, under ultrasound guidance using a micropuncture kit.
3. Left common femoral artery, 6 Ukrainian sheath, under ultrasound guidance using a micropuncture kit.
Ultrasound was utilized for vascular access. The right and left femoral artery and vein were visualized under ultrasound, and the vessels was patent and arteries were pulsatile. An image was stored permanently in the patient's medical record.
Under direct ultrasound guidance, a 8 Ukrainian sheath was inserted into the right common femoral artery, and an 6 Ukrainian sheaths in the left common femoral artery and vein, respectively, using a micropuncture kit through a modified Seldinger technique.
PREPROCEDURE NYHA CLASS: II
DESCRIPTION OF PROCEDURE: The patient was referred for assessment of severe symptomatic aortic stenosis and following a comprehensive evaluation it was felt that transcatheter aortic valve replacement (TAVR) would be the most appropriate treatment.
Informed consent was obtained prior to the procedure. A 'time-out' was called and the procedural plan was verbally confirmed by anesthesia, surgery, perfusion, and clinical laboratory manager staff.
Arterial and venous access site were obtained in the left common femoral artery and vein using ultrasound guidance and micropuncture technique. 6 Fr. sheaths were inserted.
A 5 Fr. transvenous pacing wire was advanced to the right ventricle where excellent pacing thresholds were obtained.
A 5 Fr. pigtail catheter was then advanced to the proximal ascending aorta / right aortic cusp where angiography was performed in multiple angles to define the co-planar angle that was most appropriate valve deployment (LCAIRE 6/CAU9).
Ultrasound guidance was then used to obtain arterial access in the right common femoral artery and a 4 Fr. micropuncture sheath was inserted. Angiography was performed and the arteriotomy site appeared appropriate for preclosure with two Perclose
devices. An 8 Fr sheath was then inserted back into the common femoral artery over a J-tipped guidewire. An AL1 catheter was positioned in the proximal descending aorta. An Extra Stiff 0.035' J-tip wire was inserted to provide extra-support to
facilitate the Pratt eSheath delivery. The 16 Fr. Pratt eSheath was successfully advanced in the descending thoracic aorta.
An AL1 catheter was advanced through the Pratt eSheath over a 0.035' J-tip guide wire. The AL1 catheter was positioned just above the aortic valve. A 0.035' Straight tip wire probed the aortic valve and crossed the stenotic leaflets. The AL1
was then advanced to the mid left ventricle. Estimated LV end-diastolic pressure invasively was 26 mmHg. An Amplatz Extra-stiff wire with a generous curved tip was then positioned in the left ventricular apex. A 26 mm Pratt Mao S3 valve was
brought to the table and the orientation of the valve on the balloon delivery system was confirmed by all operators. The Mao S3 valve was advanced through the eSheath and into the proximal descending thoracic aorta. The Mao S3 valve was
centered on the delivery balloon and the entire system was retroflexed as it crossed the aortic arch. The Mao S3 delivery system was then advanced across the stenotic valve and the 26 mm Mao S3 valve was deployed during rapid pacing. The
valve deployment was uneventful. Transthoracic echocardiographic images post valve deployment revealed minimal aortic insufficiency with excellent position of the aortic prosthesis.
The Pratt balloon and delivery system were then removed. The Pratt sheath was removed and the Perclose knots were advanced to the arteriotomy site resulting in excellent hemostasis.
Femoral angiography: Femoral arteriotomy bilaterally is noted to be above the bifurcation and below the inferior epigastric artery. There is minimal luminal irregularities in the visualized external iliac and femoral vessels.
CONCLUSIONS:
1. Severe symptomatic aortic stenosis. Successful deployment of a 26 mm Mao S3 valve with minimal aortic insufficiency post procedure
2. Successful arteriotomy closure with 2 Perclose devices.
3. Acute on chronic diastolic heart failure with LVEDP of 26mmHg
Analia Vega MD, FACC, [facility]
Copy to: Dary Gr.
[2024-12-29 09:36] LABS: Glucose - Point of Care 144 mg/dl (70-99)
--- NOTE | 2024-12-29 11:01 | CM ---
Chart reviewed. Patient is in the OR today. Patient is independent of ADLS, lives with his in a 1 STH, ramp access, wheelchair for long distances. Plan is for the patient to return home with CT Transitional RN. CM to follow
--- NOTE | 2024-12-29 11:07 | PTCARENOTE ---
Received patient from PACU at 1015 after TAVR this morning. AAO, neuro status within normal limits. 95% On 2L NC, monitoring VS. Bilateral groin dressings are dry and intact. Temporary pacing wires in place left femoral vein, SB on the monitor with
HR in the 40's and no paced beats noted at this time. Patient denies any pain, call lira in reach, is at the bedside.
[2024-12-29] MEDS: ANCEF 10 IV ×2 (12:30)
[2024-12-29] MEDS: LASIX 40 MG IV (12:32)
--- NOTE | 2024-12-29 13:38 | PTCARENOTE ---
Patient having increased paced beats, patient having some PVC's followed by a pause with HR in the 30's and then CONSTRUCTION EXECUTIVE beats. TT to Madison Gallardo EMPLOYMENT COACH in to see the patient and will keep him NPO for now.
--- NOTE | 2024-12-29 16:37 | CON.CAR ---
Consultation
Consultation Request
Date/Time Consultation Requested: December 29, 2024
Date/Time Consultation Performed: December 29, 2024
Requesting Provider: CT surgery, Dr. Jono Crawford
Performing Provider: Dr. Jean-Paul Blandon
Reason for Consultation: Heart block
Medical History
-
Chief Complaint: Heart block
History of Present Illness:
Primary community living specialist is Dr Nikky Merrill
.
Patient has history of severe aortic stenosis, symptomatic and underwent TAVR with implantation of Pratt Lifesciences, 26 mm CHRISTINE 3 valve.
During the procedure he developed temporary left bundle branch block which prompted maintaining temporary pacing wire.
Electrophysiology and asked for evaluation and management given temporary left bundle branch block during TAVR are as well as post procedure sinus bradycardia.
Of note, past medical history is significant for sinus bradycardia as well as blocked PACs which have been asymptomatic.
I reviewed telemetry and in addition to sinus bradycardia with first-degree AV delay(TX interval 274 ms ), narrow QRS complex and blocked PACs he is having occasional PVCs. There have also been brief episodes of nonsustained VT which are not pause
dependent.
First-degree AV delay on ECG is new compared to prior ECGs.
Past medical history:
Aortic stenosis
Paroxysmal atrial fibrillation
Essential hypertension
Diabetes mellitus
Idiopathic pulmonary fibrosis
Obstructive sleep apnea
Dyslipidemia
Social History
Tobacco: Former Smoker (Stopped in 1984)
Alcohol: None
Drug: None
Personal:
Living: With Family
Employment: Retired
Allergies / Home Medications
Allergy/AdvReac Type Severity Reaction Status Date / Time
metformin Allergy ABDOMINAL Verified 12/16/24 14:14
PAIN
morphine Allergy SEVERE Verified 12/16/24 14:14
PRURITUS
oxycodone HCl (From Allergy SEVERE Verified 12/16/24 14:14
OxyContin) NAUSEA/PRURITUS
poison maggy extract Allergy RASH/BLISTE Verified 12/16/24 14:14
RS
poison oak extract Allergy RASH/BLISTE Verified 12/16/24 14:14
RS
warfarin Allergy SEVERE Verified 12/16/24 14:14
NAUSEA/ABDOMINAL
PAIN
�Medication �Instructions �Recorded �Confirmed �Type
atorvastatin 40 mg tablet 20 mg PO QPM 02/14/19 12/29/24 History
naproxen 500 mg tablet 1 - 2 tab PO PRN PRN pain 02/14/19 12/16/24 History
tamsulosin 0.4 mg capsule (Flomax) 0.4 mg PO DAILY 02/14/19 12/29/24 History
miconazole nitrate 2 % topical 1 applic topical DAILY 04/13/23 12/29/24 History
cream
pantoprazole 40 mg tablet,delayed 40 mg PO DAILY 04/13/23 12/29/24 History
release
rivaroxaban 20 mg tablet (Xarelto) 20 mg PO QPM 04/13/23 12/29/24 History
tramadol 50 mg tablet 50 mg PO DAILY 04/13/23 12/29/24 History
cyclosporine 0.05 % eye drops in a 1 drp ophthalmic (eye) Q12H 08/12/23 12/29/24 History
dropperette (Restasis)
tolterodine 4 mg capsule,extended 4 mg PO DAILY 01/15/24 12/29/24 History
release 24 hr
furosemide 20 mg tablet (Lasix) 20 mg PO DAILY #90 tabs 10/13/24 12/29/24 Rx
sodium chloride 0.9 % for 1 ml inhalation R DAILY 10/13/24 12/29/24 History
nebulization
albuterol sulfate 90 mcg/actuation 2 puff inhalation Q6H PRN SOB 12/16/24 12/29/24 History
aerosol inhaler
budesonide 0.5 mg/2 mL suspension 0.5 mg inhalation DAILY 12/16/24 12/29/24 History
for nebulization
cyanocobalamin (vitamin B-12) 1,000 mcg PO QPM 12/16/24 12/29/24 History
1,000 mcg tablet
empagliflozin 25 mg tablet 12.5 mg PO DAILY 12/16/24 12/29/24 History
(Jardiance)
lisinopril 5 mg tablet 5 mg PO HS 12/16/24 12/29/24 History
semaglutide 1 mg/dose (4 mg/3 mL) 1 mg SC QWEEK 12/16/24 12/29/24 History
subcutaneous pen injector (Ozempic)
aspirin 81 mg tablet 81 mg PO DAILY 12/29/24 12/29/24 History
Review of Systems
-
History Source: Patient
All other systems: Negative unless noted
Constitutional: No Symptoms
EENT: No Symptoms
Respiratory: No Symptoms
Cardiac: No Symptoms
Abdomen/GI: No Symptoms
: No Symptoms
Musculoskeletal: No Symptoms
Skin: No Symptoms
Neurological: No Symptoms
Endocrine: No Symptoms
Hematologic/Lymphatic: No Symptoms
Physical Exam
Vital Signs
Temp Pulse Resp BP Pulse Ox
97.5 F 57 20 125/73 97
12/29/24 15:35 12/29/24 16:30 12/29/24 15:35 12/29/24 16:30 12/29/24 16:30
Lab Results
12/20/24 09:39
12/20/24 09:39
Zwk-P-Jmplxiayliq Pept 127 pg/ml 12/20/24 09:39
Physical Exam
General: Well Developed, Well Nourished, No Apparent Distress and Comfortable
HEENT: Normocephalic, Anicteric and Moist Mucous Membranes
Respiratory: Clear and Non Labored Respirations
Cardiac: S1/S2, Regular Rhythm and Murmur (Grade 1/6 basal systolic ejection murmur, no rubs, normal PMI)
Breast: Deferred by me
GI: Soft, Non Tender, Non Distended and Normal Bowel Sounds
Rectal: Deferred by Provider
Musculoskeletal: No Clubbing, No Cyanosis and Edema (There is +1 pretibial edema bilaterally)
Skin: Warm and Dry
Neuro: Awake, Alert, Oriented and AO x 3
Psych: Calm
Impression / Plan
-
.
Assessment and recommendation:
Regarding transient left bundle branch block observed at time of TAVR or implantation, left bundle branch block has resolved. He does continue to have a mild first-degree AV delay which is new compared to ECGs prior to aortic valve replacement with
TAVR. In addition he has sinus bradycardia as well as PACs with block and PVCs with retrograde conduction followed by a brief period of AV block. There have been short runs of nonsustained VT most of which appear to not be pause dependent.
At this point there is no absolute indication for permanent pacemaker implantation.
I would continue to observe overnight while maintaining temporary pacing wire.
I did change VVI pacing from a base of 40 to a base of 30 ppm to assess for any long pauses or periods of block.
If there is no worsening AV block, no objection to discharge tomorrow but I would send him home with a 14-day rhythm*monitor.
Total time spent today was 58 minutes in preparing to see the patient, seeing the patient and coordination of care. This included review of recent laboratory evaluations, cardiact testing, imaging studies, primary care rtecords, specialty
consultations, hospital records, as well as personally interviewing and examining the patient, which included discussion of their tests, review/ordering medications, and communicating with other healthcare professionals and also treatment planning
as well as counseling.
Total time does not include separately billed tests performed on this date of service.
Data Reviewed
-
EKG: Tracing Personally Visualized and interpreted
Radiology: Report Reviewed by me
Medical Tests (Nuc Med, Echo etc): Report Reviewed by me
Labs: Labs Reviewed by me
Old Records: Requested
[2024-12-29] MEDS: ANCEF 5 IV (16:48)
[2024-12-29] MEDS: LIPITOR 20 MG PO (16:49)
[2024-12-29] MEDS: RESTASIS 0.05% OPHTHALMIC EMULSION 1 DROPS BOTH EYES (19:06)
[2024-12-29] MEDS: TYLENOL 650 MG PO ×2 (19:06→23:40)
[2024-12-29] MEDS: ULTRAM 50 MG PO (21:01)
[2024-12-29 21:03] LABS: Blood Urea Nitrogen 14 mg/dl (9-20); Calcium 9.2 mg/dl (8.4-10.2); Carbon Dioxide 25 mmol/L (22-30); Chloride 102 mmol/L (98-107); Estimated Creatinine Clearance 70 ml/min; Glucose 189 mg/dl (70-99); Magnesium 1.8 mg/dl (1.6-2.3); Potassium 4.2 mmol/L (3.5-5.1); Sodium 137 mmol/L (135-145); eGFR > 60.00
--- NOTE | 2024-12-29 21:22 | W.PN.UPDATE ---
Update Note
Progress Note Update
-noted runs of NSVT on telemetry, asymptomatic. No significant bradycardia or pauses noted. Reviewed tele with Dr. Blandon - suggests taking temp pw out d/t possibly causing arrhythmia. Dr. Crawford and Dr Vega are agreeable. Took out pacing wire
without incident. Left L groin sheath sutured in as before. Currently, pt is in nsr 61 bpm, BP 121/66.
-will continue to monitor
-pt got Lasix earlier. Checked electrolytes- K 4.2, Mg 1.8. Will replete Mg
[2024-12-29] MEDS: MAGNESIUM SULFATE 50 IV (21:44)
[2024-12-29] MEDS: ZESTRIL 5 MG PO (21:55)
--- NOTE | 2024-12-29 22:36 | PTCARENOTE ---
Patient received at change of shift resting in the bed. Left femoral vein with venous sheath and temporary transvenous pacemaker present, site intact. KVO infusing at 10mL/hr per order. Right groin site with gauze and tegaderm C/D/I, some ecchymosis
present but surrounding area is soft to palpation. Bilateral pedal pulses +2 to palpation. Neurological check WDL. On telemetry the patient is primarily sinus rhythm/sinus bradycardia with a first degree AVB and frequent PVCs. Couplets and triplets
noted. Per ROSY Rosas defibrillator pads applied to the patient. Stat labs drawn as ordered and sent. Temporary pacemaker discontinued/removed by CT surgery ROSY Rosas at 2103, venous sheath remains in place. IV Magnesium repletion ordered
and hung, see MAR. At 220 a nine beat run of VT was noted, patient asymptomatic. No further orders initiated at the present time. Discussed importance of maintaining bedrest and activity restrictions with the patient who verbalized understanding.
One time dose of Tramadol given as the patient has chronic low back pain exacerbated by maintaining a supine position, see MAR. PRN acetaminophen also administered, see MAR. Plan of care discussed. Call lira within reach. Care ongoing.
[2024-12-30] VITALS (32 sets, daily range): BP systolic 96–147; BP diastolic 56–127; PULSE 73; O2SAT 96; BMI 30.4
[2024-12-30] MEDS: ULTRAM 50 MG PO (03:31)
[2024-12-30 03:39] LABS: Hematocrit 49.5 % (39.0-52.0); Hemoglobin 16.4 g/dL (13.0-18.0); Mean Corp Hgb Conc. 33.1 g/dL (33.0-37.0); Mean Corpuscular Volume 87.3 fL (80.0-94.0); Platelet Count 218 10^3/uL (130-400); Red Cell Dist. Width 14.5 % (11.5-14.5)
[2024-12-30 03:56] LABS: Blood Urea Nitrogen 15 mg/dl (9-20); Calcium 8.9 mg/dl (8.4-10.2); Carbon Dioxide 26 mmol/L (22-30); Chloride 104 mmol/L (98-107); Estimated Creatinine Clearance 89 ml/min; Glucose 153 mg/dl (70-99); Magnesium 2.4 mg/dl (1.6-2.3); Potassium 4.4 mmol/L (3.5-5.1); Sodium 137 mmol/L (135-145); eGFR > 60.00
[2024-12-30 04:47] LABS: Hepatitis C Antibody Negative (Negative)
--- NOTE | 2024-12-30 07:56 | W.PN.ANS.POP ---
Anesthesia Post Operative
- Anesthesia Post Op Note
Vital Signs Stable-See Nursing Note: Yes
Airway Patent: Yes
Adequate Pain Control: Yes
Change in Mental Status: No
Current Postoperative Nausea & Vomiting: No
Anesthesia Complications: No
General Anesthetic Recall: No
Unplanned Admission: No
Post Op Hydration Adequate: Yes
- -
Pt awake and alert with no anesthesia related c/o at time of post op visit.
--- NOTE | 2024-12-30 08:48 | W.PN.CT ---
Today's Communication / Plan
-
-pod #1
-pt had bursts of NSVTs post TAVR. Temporary pw was dcd last night as a possible cause of arrhythmia. Pt still had 9 beat NSVT episode after pw was taken out; however, much less episodes than before
-repleted Mg
-no significant bradycardia or pauses noted (hr low 50s overnight). Some nonconducted PACs.
-pt is not on AV node blocking meds
-d/c L groin sheath
-Echo today
-diuresed post TAVR
-ambulate, OOB
-will need outpatient monitor
Assessment / Plan
-
- Severe symptomatic - s/p Right transfemoral TAVR with placement of 26 mm CHRISTINE 3 Resilia valve on 12/29/24, pod #1
- Acute on chronic combined systolic/diastolic CHF with elevated LVEDP (26 mmHg)
- TTE assessment (mean gradient 7 mmHg, trace PVL)
- New bundle branch block post TAVR, temporary pacing wire secured in-situ
- HTN
- HLD
- GERD
- KRISTEN
- OA, L TKR
- R breast excision
- Gout
- DM II
- Exposure to agent orange
- former smoker
- Acute postop bursts of NSVT
Discussed patient care with: Nursing and Care Team
Subjective
-
Date of Service: December 30, 2024
Objective Data
-
Lab Results
12/30/24 03:11
12/30/24 03:11
PT 13.8 Sec (11.4-14.6) 12/29/24 05:18
INR 1.01 12/29/24 05:18
Vital Signs
Vital Signs
Temp Pulse Resp BP Pulse Ox
97.4 F 51 16 121/66 52
12/30/24 08:30 12/30/24 08:30 12/30/24 08:30 12/30/24 08:00 12/30/24 08:30
[address] Intake/Output/Weight
12/29/24 12/30/24 12/30/24
18:59 06:59 18:59
Intake Total 740 / 740
Output Total 1774 / 2074 300 / 2074
Balance -1035 / -1335 -300 / -1335
SaO2: 52
Physical Exam
-
General: Awake and AOx3
Cardiovascular: Regular rate & rhythm, No Murmurs and No Rub
Respiratory: Decreased Breath Sounds
Sternum: Stable
Incision: Clean (groins are cdi, soft, nontender, no hematoma b/l. L groin wit venous sheath)
Extremities: No Edema
Data Reviewed
-
Lab Results: Results Reviewed
Medications: Active Meds Reviewed
Chest X-Ray: Report Reviewed and Image Reviewed
ECG: Report Reviewed and Image Reviewed
[2024-12-30] MEDS: PROTONIX 40 MG PO (08:56)
[2024-12-30] MEDS: DETROL LA 4 MG PO (08:57)
[2024-12-30] MEDS: RESTASIS 0.05% OPHTHALMIC EMULSION 1 DROPS BOTH EYES (08:57)
[2024-12-30] MEDS: FLOMAX 0.4 MG PO (08:57)
[2024-12-30] MEDS: FARXIGA 10 MG PO (08:57)
[2024-12-30] MEDS: LASIX 20 MG PO (08:57)
--- NOTE | 2024-12-30 09:22 | W.PN.CARDCBS ---
Addendum entered and electronically signed by Analia Vega MD 12/30/24 15:21:
I saw and examined the patient.
The Zigzag Topstitcher's note was reviewed and I agree with the note.
Comment: Patient is doing well this morning does not offer any significant complaints. No chest discomfort or shortness of breath.
Vital signs reviewed as well as lab work is reviewed. On exam patient is on bedrest with venous sheath being pulled this morning, no acute distress, awake, alert and oriented x 3, regular rate, normal S1 and S2, 2 out of 6 systolic ejection murmur
over the right upper sternal border, no JVD, lungs are clear to auscultation bilaterally, bilateral groin sites with out evidence of hematoma or bruit, dressing in place which is clean, dry and intact, warm extremities without significant edema.
Recommendations:
1. Patient is status post a successful 26 mm Pratt CHRISTINE TAVR via right transfemoral approach on December 29, 2024 complicated by new transient left bundle branch block and intermittent wenckebach versus questionable higher grade AV block.
2. Discussions ongoing with electrophysiology in regards for any indications for permanent pacemaker versus close monitoring as an outpatient with a rhythm star cardiac monitoring.
3. Plan to have patient ambulate and if he remains asymptomatic we would lean towards close monitoring with a rhythm star monitor
4. Echocardiogram this morning reviewed showing normal biventricular function and stable transaortic gradients without significant PVL.
If patient continues to remain asymptomatic with no worsening from a rhythm standpoint plan will be to discharge him home later today.
Analia Vega MD, [facility], [facility]
Original Note:
Today's Communication / Plan
-
follow rhythm
echo pending
ambulate
Impression / Plan
-
Primary Application Counselor: Dr. Merrlil
Assessment:
- Severe symptomatic s/p Right transfemoral TAVR 26 mm CHRISTINE 3 Resilia valve 12/29/24
- Acute on chronic combined systolic/diastolic CHF with elevated LVEDP
- New transient bundle branch block post TAVR, temporary pacing wire secured in-situ
- HTN
- HLD
- GERD
- KRISTEN
- OA, L TKR
- R breast excision
- Gout
- DM II
- Exposure to agent orange
- former smoker
ECHO 10/27/24: EF 55%, moderate with JANAY 1.13 square mild AR
ECHO 12/29/24: EF 55 to 60%, status post TAVR functioning well, peak/mean gradient 16/7 mmHg, trace AR, no pericardial effusion
Plan:
-s/p Right transfemoral TAVR 26 mm CHRISTINE 3 Resilia valve 12/29/24
- Had transient left bundle branch block at time of TAVR implantation, subsequently resolved. Overnight and this morning noted to have several episodes of transient wenckebach with narrow QRS complex. He also had several episodes of NSVT overnight
which were felt to be secondary to temp pacer wire with subsequent discontinuation with improvement. Magnesium was repleted. no evidence of high-grade AV block or pauses.
- Continue to avoid AV meagan blocking agents
- discussed with EP. Will leave n.p.o. for now, check EKG, discontinue left groin sheath, and ambulate patient. If rhythm remains stable, will plan for discharge later today with 14-day rhythm*monitor. If with evidence of higher grade AV block,
will likely require pacemaker.
- Echo pending
- Right groin site soft, NTTP, clean dry and intact
- Hemoglobin at 16.4. Xarelto to be resumed this evening
- Discussed with nursing. Discussed with patient and family at bedside. Discussed with CT surgery. Discussed with TAVR coordinator.
Progress Note - Application Counselor
Subjective
Date of Service: December 30, 2024
denies lightheadedness, CP, SOB.
Objective
Labs:
12/30/24 03:11
12/30/24 03:11
Labs
Hgb 16.4 g/dL (13.0-18.0) 12/30/24 03:11
Hct 49.5 % (39.0-52.0) 12/30/24 03:11
Plt Count 218 10^3/uL (130-400) 12/30/24 03:11
PT 13.8 Sec (11.4-14.6) 12/29/24 05:18
INR 1.01 12/29/24 05:18
Sodium 137 mmol/L (135-145) 12/30/24 03:11
Potassium 4.4 mmol/L (3.5-5.1) 12/30/24 03:11
BUN 15 mg/dl (9-20) 12/30/24 03:11
Creatinine 0.8 mg/dL (0.7-1.3) 12/30/24 03:11
Glucose 153 mg/dl (70-99) H 12/30/24 03:11
Vital Signs and I&O:
Vital Signs
Temp Pulse Resp BP Pulse Ox
97.4 F 51 16 121/66 95
12/30/24 08:30 12/30/24 08:30 12/30/24 08:30 12/30/24 08:00 12/30/24 08:53
Vital Signs
Temp Pulse Resp BP Pulse Ox
97.4 F 51 16 121/66 95
12/30/24 08:30 12/30/24 08:30 12/30/24 08:30 12/30/24 08:00 12/30/24 08:53
Intake & Output
12/28/24 12/29/24 12/30/24 12/31/24
07:59 07:59 07:59 07:59
Intake Total 740 / 740
Output Total 2074 200 / 200
Balance -1335 / -1335 -200 / -200
Physical Exam
Physical Exam
GEN: No distress, awake, alert, oriented x3
HEENT: supple, anicteric, mmm, eomi
LUNGS: CTA B/L, no wheezes/rales
CV: Reg, S1/S2, 1/6 syst LSB
ABD: soft, BS+, NT/ND
EXT: No cyanosis, clubbing, edema
NEURO: Gross non-focal
SKIN: Warm, pink, dry. No rash. L groin site with sheath in place. R groin site soft, NTTP, c/d/i.
[2024-12-30] MEDS: NSS IV (10:42)
--- NOTE | 2024-12-30 11:53 | W.DCSUMMARY ---
Discharge Summary
Discharge Data
Date of Admission: 12/29/24
Date of Discharge: 12/30/24
Total time spent discharging patient (in min): 40
-
Pending Results: No
Hospital Course
Primary care physician:
Dr. Pierson
Outpatient machine folder:
Dary Gr
Inpatient consultants:
DAISY
Procedures:
1. Right transfemoral TAVR 26 mm CHRISTINE 3 Resilia valve 12/29/24
Primary Diagnosis:
1. Severe symptomatic aortic stenosis
Secondary Diagnoses:
1. Postoperative left bundle branch block
2. Postoperative bradycardia
3. Acute on chronic heart failure
HPI: 74-year-old male with severe aortic stenosis presents electively on 12/29 for a transcatheter AVR with Dr. Crawford
Hospital course: Patient was electively admitted on 12/29 for a transcatheter aortic valve replacement with Dr. Crawford. Patient had transient left bundle branch block after valve deployment and patient went to cathode washer recovery. A transvenous wire
was placed and maintained due to bradycardia and the transient LBBB, however, it was removed later that night after some episodes of nonsustained ventricular tachycardia. On 12/30, POD #1, patient's sheath was removed. Patient had a short episode
of transient heart block however telemetry was reviewed with electrophysiology and it was decided that the patient will be discharged home with a rhythm star monitor for 14 days. Repeat TTE showed a peak/mean gradient of 16 and 8 mmHg. He was
deemed stable for discharge.
Home medication changes:
see below
Discharge Plan
-
Patient Disposition: Home (Routine Discharge)
Discharge Diagnosis/Procedures: TF-TAVR
Condition: Fair
Diet: Low Cholesterol and 2 Gram Sodium
Activity: As tolerated
Driving Restrictions: No driving for 1 week
Bathing Restrictions: OK to Shower
Others Tests: 30 day follow up echocardiogram: 01/24/2025 at 10:20am at [facility]
Other Services: Cardiac Rehab
Wound Care: Please do not apply lotions, creams or powders to groin areas. Please monitor for increased pain, swelling, redness or drainage. Call your doctor if any occur.
Specialty Instructions: Weigh Daily- Call MD for wt gain/loss 3 lbs overnight/5 lbs in 1 week
Activity Restrictions/Additional Instructions:
Please call to make appointments for Phase II Cardiac Rehab (When ready)
1) [facility]
[phone]
Stand Alone Forms: DC Inst - TransFemoral (TAVR)
Referrals:
CT Transitional Care Nurse [Outside]
Referral Note: The Cardiothoracic Transitional Care Nurse will call you to set up a visit in 1-2 days.
Elizabeth Hitchcock PA-C [Specified Professional Personl, Cardiology] - 01/30/25 10:00 am
Blade Pierson MD [Family Provider, Family Practice]
Prescriptions:
Continued
atorvastatin 40 MG tablet
20 mg PO QPM
Rx Instructions:
Patient states he only takes half a pill
tamsulosin [Flomax] 0.4 MG capsule
0.4 mg PO DAILY
Xarelto 20 mg Tablet
20 mg PO QPM
miconazole nitrate 2 % Cream
1 applic TOPICAL DAILY
Rx Instructions:
under the arms and groin;
tramadol 50 mg Tablet
50 mg PO DAILY
Rx Instructions:
Patient states he only takes this medication a few time a month, has not taken it in November
pantoprazole 40 mg Tablet,Delayed Release (Dr/Ec)
40 mg PO DAILY
cyclosporine [Restasis] 0.05 % Dropperette
1 drp OPHTHALMIC (EYE) Q12H
Rx Instructions:
BOTH EYES
tolterodine 4 mg Capsule,Extended Release 24hr
4 mg PO DAILY
sodium chloride 0.9 % Solution For Nebulization
1 ml INHALATION R DAILY
furosemide [Lasix] 20 mg tablet
20 mg PO DAILY Qty: 90 5RF
albuterol sulfate 90 mcg/actuation Hfa Aerosol Inhaler
2 puff INHALATION Q6H PRN (Reason: SOB)
budesonide 0.5 mg/2 mL Suspension For Nebulization
0.5 mg INHALATION DAILY
cyanocobalamin (vitamin B-12) 1,000 mcg Tablet
1,000 mcg PO QPM
Jardiance 25 mg Tablet
12.5 mg PO DAILY
lisinopril 5 mg Tablet
5 mg PO HS
Ozempic 1 mg/dose (4 mg/3 mL) Pen Injector
1 mg SC QWEEK
Rx Instructions:
QMONDAY
aspirin 81 mg Tablet
81 mg PO DAILY
Discontinued
naproxen 500 MG tablet
1 - 2 tab PO PRN PRN (Reason: pain)
Rx Instructions:
Has not taken in about a month
Discharge Orders:
Discharge Patient (As Directed); Ordered 12/30/24
Ordered By: Naomy Montano
Care Plan Goals
Care Plan Goals:
Problem: Readiness for enhanced knowledge related to diagnosis and treatment plan
Goal: Understand your diagnosis and treatment plan needs, including medications if applicable.
Instructions: Know your diagnosis, underlying causes and treatment plan options, including medications if applicable. Consult with your health care team to learn about your diagnosis and treatment plan, including medications if applicable.
Discharge Date and Time
Print Language: WOLOF
--- NOTE | 2024-12-30 14:18 | PTCARENOTE ---
Left femoral venous sheath removed by cathead worker personnel @10:42 with hemostasis at 10:52. Pt OOB with RN @13:00 walking in halls at a slow pace using a walker, heart rate up to 100-130 with activity , no heart block noted. Brief episodes of heart
block noted @08:42 and 11:43, RODRÍGUEZ Callahan notified.
Bilateral femoral sites with dry and intact dressings, no sign of bleeding or hematoma. Pt voiding without difficulty. Plan for possible DC today with rhythm star monitor.
[2024-12-30] MEDS: TYLENOL 650 MG PO (14:33)
--- NOTE | 2024-12-30 15:54 | PTCARENOTE ---
Pt seen by Cardiac Rehab. Telemetry and IV device removed. Discharge instructions reviewed with pt and his regarding activity and driving restrictions, wound care, medications and their possible side effects, reporting cares and concerns and
follow up appt's. Very good understanding verbalized. Pt escorted out via wheelchair and discharged to home. Rhythm star home monitor placed on pt and activated.
== END 2024-12-30 15:58 | disposition home or self-care (01) | DRG 266 ==
LOC: IVU 04:52
PROVIDERS: Nurse Practitioner Acute Care; Physician Assistant Medical; ADMITTING PHYSICIAN Thoracic Surgery (Cardiothoracic Vascular Surgery); FAMILY PHYSICIAN Family Medicine; OTHER PHYSICIAN Internal Medicine Cardiovascular Disease
PROC: 02RF38Z Replacement of Aortic Valve with Zooplastic Tissue, Percutaneous Approach (ICD-10-PCS; 2024-12-29)
DX: I35.2 Nonrheumatic aortic (valve) stenosis with insufficiency (principal); Z00.6 Encounter for examination for normal comparison and control in clinical research program; I50.43 Acute on chronic combined systolic (congestive) and diastolic (congestive) heart failure; R00.1 Bradycardia, unspecified; I11.0 Hypertensive heart disease with heart failure; I44.7 Left bundle-branch block, unspecified; I48.0 Paroxysmal atrial fibrillation; J84.112 Idiopathic pulmonary fibrosis; G47.33 Obstructive sleep apnea (adult) (pediatric); E78.5 Hyperlipidemia, unspecified; E11.9 Type 2 diabetes mellitus without complications; M10.9 Gout, unspecified; Z79.01 Long term (current) use of anticoagulants; Z79.51 Long term (current) use of inhaled steroids; Z79.84 Long term (current) use of oral hypoglycemic drugs; Z79.85 Long-term (current) use of injectable non-insulin antidiabetic drugs; Z79.82 Long term (current) use of aspirin; Z79.899 Other long term (current) drug therapy; Z87.891 Personal history of nicotine dependence
CPT/HCPCS: 33361; 36415; 71045; 71046; 80048; 80053; 81003; 81015; 82248; 82962; 83036; 83735; 83880; 85025; 85027; 85347; 85610; 86803; 86850; 86900; 86901; 87070; 93005; 93308; 93321; 93325; C1760; C1769; C1894; Q9967

== ENCOUNTER 2025-01-16 10:45 | Emergency (ER) | payer OTHER, SELFPAY ==
[2025-01-16 10:53] VITALS: BP 190/100
[2025-01-16 11:17] VITALS: BMI 30.9
[2025-01-16 11:23] VITALS: BP 175/83
--- NOTE | 2025-01-16 11:40 | ED.GENMED ---
History of Present Illness
General
Chief Complaint: Headache
Source: patient
Exam Limitations: none
Time Seen by Provider: 01/16/25 11:39
Nursing documentation reviewed up to this point in time: agreed with
History of Present Illness
History of Present Illness:
74-year-old male with history of headaches related to cervical spine problems, pulmonary fibrosis, HTN, HLD, GERD, NIDDM, A-fib on Xarelto, Lumbar and cervical radiculopathy, chronic pain, AVR 12/29/24, presents for one week of increasing frequency
and intensity of fleeting sharp, electric shooting pains from right mandaeism up right side of head to top. If he presses on the area just anterior to his right upper ear, it is painful. Denies change in vision. Denies CP, SOB, abd pain. Denies n/v.
Denies fever. Denies any new neck pain.
Past History
Past History
ED Past Medical History: HTN, Hypercholesterolemia and IDDM
ED Past Surgical History: Cardiac (AVR 12/29/24) and Orthopedic
Social History
Tobacco: Non-smoker
Alcohol: None
Personal:
Living: with family
Review of Systems
Review of Systems
Allergies reviewed?: Yes
All Other Systems: ROS reviewed and negative except as documented in HPI and ROS
Phy Exam
Physical Exam
Physical Exam:
GENERAL: No acute distress. A&Ox3.
CONSTITUTIONAL: Afebrile.
EYES: clear, conjunctivae normal
ENMT: moist mucus membranes, Pharynx nl, TMs normal
RESPIRATORY: Regular respirations, nonlabored, lungs clear.
CARDIOVASCULAR: Regular rate and rhythm, no murmurs, no rubs.
GI: Soft, nontender, normal BS
MUSCULOSKELETAL: Moves with ease. Well perfused. Tender to press on scalp/mandaeism area just anterior to upper right ear
SKIN: Warm, dry, pink
PSYCH: Normal mood and affect. Well kept, interactive and appropriate
NEUROLOGIC: Awake, alert and oriented. Speech clear. Cranial nerves II through XII intact. [id number] intact. No focal neurological deficits. Every minute or 2 he winces in pain due to electric like shocks to the right mandaeism and scalp area.
Course
Orders/Labs/Results
Orders:
Orders
01/16/25 11:27
CT Head W/o Iv Contrast Urgent
Comment:
Reason For Exam: headache
01/16/25 12:15
CRP [C-Reactive Protein] Stat
Complete Blood Count/With Diff Urgent
Comprehensive Metabolic Panel Urgent
ESR [Erythrocyte Sed Rate] Urgent
Abnormal Lab Results
01/16/25
12:15
RDW 15.0 H %
(11.5-14.5)
MPV 11.9 H fL
(7.4-10.4)
Abs Immat Gran (auto) 0.1 H 10^3/uL
(0-0.05)
Immature Gran % 0.7 H %
(0-0.5)
Glucose 122 H mg/dl
(70-99)
Total Bilirubin 1.6 H mg/dl
(0.2-1.3)
01/16/25 12:15
01/16/25 12:15
Vital Signs
Initial and Last Documented VS:
Initial Vital Signs
Temp Pulse Resp BP Pulse Ox
98.0 F 68 16 190/100 98
01/16/25 10:53 01/16/25 10:53 01/16/25 10:53 01/16/25 10:53 01/16/25 10:53
Last Documented Vital Signs
Temp Pulse Resp BP Pulse Ox
98.4 F 61 14 163/72 95
01/16/25 11:28 01/16/25 13:45 01/16/25 13:45 01/16/25 13:00 01/16/25 13:45
MDM/Problems Addressed
Differential Diagnosis Includes:
Temporal arteritis, trigeminal neuralgia, migraine
MDM/Problems Addressed:
74-year-old male with history of headaches related to cervical spine problems, pulmonary fibrosis, HTN, HLD, GERD, NIDDM, A-fib on Xarelto, Lumbar and cervical radiculopathy, chronic pain, AVR 12/29/24, presents for one week of increasing frequency
and intensity of fleeting sharp, electric shooting pains from right mandaeism up right side of head to top. If he presses on the area just anterior to his right upper ear, it is painful. Denies change in vision. Denies CP, SOB, abd pain. Denies n/v.
Denies fever. Denies any new neck pain.
Afebrile, NAD, during exam, fleeting wincing episodes due to pain
CBC normal
CMP normal
CRP normal
Will treat for trigeminal neuralgia with Gabapentin, cannot use Tegretol on Xarelto.
Findings and plan discussed with patient and . All questions answered.
stable for discharge
*Pulse Oximetry
SaO2: 97
Oxygen Mode of Delivery: Room air
Patient hypoxic: no
*Critical Care Note
Total Time (30-74mins, 75-104mins- exclusive of procedures): Not Applicable
ED Attending Note
-
Portions of this chart may have been created with voice recognition software.� Occasional wrong word or��sound alike� substitutions may have occurred due to the inherent limitations of voice recognition software.
Discharge Plan
Departure
Patient Disposition: Home (Routine Discharge)
Date of Disposition: 01/16/25
Time of Disposition: 13:25
Patient with high blood pressure during this ER visit?: No
Condition: Good
Discharge Problem:
Right trigeminal neuralgia
Instructions: Trigeminal neuralgia
Prescriptions:
New
gabapentin 100 mg capsule
100 mg PO BID Qty: 20 0RF
No Action
atorvastatin 40 MG tablet
20 mg PO QPM
Rx Instructions:
Patient states he only takes half a pill
tamsulosin [Flomax] 0.4 MG capsule
0.4 mg PO DAILY
Xarelto 20 mg Tablet
20 mg PO QPM
miconazole nitrate 2 % Cream
1 applic TOPICAL DAILY
Rx Instructions:
under the arms and groin;
tramadol 50 mg Tablet
50 mg PO DAILY
Rx Instructions:
Patient states he only takes this medication a few time a month, has not taken it in November
pantoprazole 40 mg Tablet,Delayed Release (Dr/Ec)
40 mg PO DAILY
cyclosporine [Restasis] 0.05 % Dropperette
1 drp OPHTHALMIC (EYE) Q12H
Rx Instructions:
BOTH EYES
tolterodine 4 mg Capsule,Extended Release 24hr
4 mg PO DAILY
sodium chloride 0.9 % Solution For Nebulization
1 ml INHALATION R DAILY
furosemide [Lasix] 20 mg tablet
20 mg PO DAILY Qty: 90 5RF
albuterol sulfate 90 mcg/actuation Hfa Aerosol Inhaler
2 puff INHALATION Q6H PRN (Reason: SOB)
budesonide 0.5 mg/2 mL Suspension For Nebulization
0.5 mg INHALATION DAILY
cyanocobalamin (vitamin B-12) 1,000 mcg Tablet
1,000 mcg PO QPM
Jardiance 25 mg Tablet
12.5 mg PO DAILY
lisinopril 5 mg Tablet
5 mg PO HS
Ozempic 1 mg/dose (4 mg/3 mL) Pen Injector
1 mg SC QWEEK
Rx Instructions:
QMONDAY
aspirin 81 mg Tablet
81 mg PO DAILY
Referrals:
Blade Pierson MD [Family Provider, Family Practice]
Activity Restrictions/Additional Instructions:
As we discussed, you most likely have trigeminal neuralgia.
I sent a prescription to your pharmacy for Gabapentin to take 100 mg twice a day
See your doctor in 5-7 days for recheck.
Interventions
Interventions:
*Risk Screen - Suicide Last Done: 01/16/25 10:53
*General Assessment Last Done: 01/16/25 10:53
*Neglect/Abuse Screening Last Done: 01/16/25 11:24
*ED- Fall Risk Assessment Last Done: 01/16/25 11:24
*ED COVID-19 Vaccine History Last Done: 01/16/25 11:24
*ED Influenza Vaccine History Last Done: 01/16/25 11:24
*Nursing Disposition Last Done: 01/16/25 14:19
ED- Neurological Assessment Last Done: 01/16/25 11:24
Discharge Date and Time
Discharge Date/Time: 01/16/25 14:19
Print Language: BRAZILIAN
[2025-01-16 12:00] VITALS: BP 129/76
[2025-01-16 12:32] VITALS: BP 140/69
[2025-01-16 12:35] LABS: Hematocrit 50.3 % (39.0-52.0); Hemoglobin 17.2 g/dL (13.0-18.0); Mean Corp Hgb Conc. 34.2 g/dL (33.0-37.0); Mean Corpuscular Volume 83.0 fL (80.0-94.0); Nucleated Red Blood Cells % 0 % (-); Platelet Count 182 10^3/uL (130-400); Red Cell Dist. Width 15.0 % (11.5-14.5)
[2025-01-16 12:58] LABS: ALT (SGPT) 20 U/L (0-50); AST (SGOT) 26 U/L (17-59); Albumin 4.4 g/dl (3.5-5.0); Alkaline Phosphatase 84 U/L (38-126); Blood Urea Nitrogen 10 mg/dl (9-20); C-Reactive Protein < 5.00 mg/L (0.0-10.00); Calcium 8.9 mg/dl (8.4-10.2); Carbon Dioxide 26 mmol/L (22-30); Chloride 103 mmol/L (98-107); Estimated Creatinine Clearance 79 ml/min; Glucose 122 mg/dl (70-99); Potassium 4.2 mmol/L (3.5-5.1); Sodium 135 mmol/L (135-145); Total Protein 7.9 g/dl (6.3-8.2); eGFR > 60.00
[2025-01-16 13:00] VITALS: BP 163/72
== END 2025-01-16 14:19 | disposition home or self-care (01) ==
LOC: EMR 10:45
PROVIDERS: Registered Nurse; EMERGENCY PHYSICIAN Emergency Medicine; FAMILY PHYSICIAN Family Medicine
DX: G50.0 Trigeminal neuralgia (principal); E11.9 Type 2 diabetes mellitus without complications; E78.00 Pure hypercholesterolemia, unspecified; I10 Essential (primary) hypertension; I48.91 Unspecified atrial fibrillation; J84.10 Pulmonary fibrosis, unspecified; Z79.01 Long term (current) use of anticoagulants
CPT/HCPCS: 99284; 70450; 80053; 85025; 85652; 86140

== ENCOUNTER → 2025-01-24 10:15 | Outpatient (REF) | payer OTHER, SELFPAY | LOC: RCS 10:15 | PROVIDERS: ATTENDING PHYSICIAN Internal Medicine Cardiovascular Disease; FAMILY PHYSICIAN Family Medicine | DX: Z95.2 Presence of prosthetic heart valve (principal) | CPT/HCPCS: 93306 ==